=== PATIENT | female | born 1955 | race Caucasian/White ===

== ENCOUNTER → 2017-04-01 | Outpatient (CLI) | payer MEDICARE, OTHER | LOC: EXRD 15:18 | DX: M25.531 Pain in right wrist (principal) | CPT/HCPCS: 73100 ==

== ENCOUNTER → 2020-11-06 | Outpatient (CLI) | payer MEDICARE, OTHER ==
[~2020-11-06] MED LIST: CELEBREX100 MG PO; COZAAR 50MG TAB50 MG PO; CYCLOBENZAPRINE10 MG PO; CYCLOBENZAPRINE5 MG PO; DOXYCYCLINE MO100 MG PO; FENOFIBRATE160 MG PO; FLUOXETINE HCL40 MG PO; HYDROCODON-ACE1 EAC2 PO; HYDROCODON-ACE1 EAC4 PO; LODINE CAP 300300 MG PO; MACROBID 100 M100 MG PO; MEDROL DOSEPAK 24 MG PO; MEDROL4 MG PO; METFORMIN HCL1000 MG PO; METHYLPREDNISOLO4 M1 PO; NORFLEX 100 MG100 MG PO; OMEPRAZOLE40 MG PO; OZEMPIC0.25 MG/0. SQ; PERCOCET 5-3251 EACH PO; PYRIDIUM200 MG PO; TENORMIN 50 MG50 MG PO; ULTRAM50 MG PO; Voltaren Gel 1% TOP
== END ==
LOC: KOH-I 10-25 13:00
DX: M54.2 Cervicalgia (principal); M47.812 Spondylosis without myelopathy or radiculopathy, cervical region; M79.602 Pain in left arm; R20.2 Paresthesia of skin; M50.322 Other cervical disc degeneration at C5-C6 level; M50.223 Other cervical disc displacement at C6-C7 level; M50.221 Other cervical disc displacement at C4-C5 level; M48.03 Spinal stenosis, cervicothoracic region
CPT/HCPCS: 72141

== ENCOUNTER 2021-02-09 01:09 | Emergency (ER) | payer MEDICARE, OTHER ==
[~2021-02-09 01:09] MED LIST changes: -CELEBREX100 MG PO; -COZAAR 50MG TAB50 MG PO; -DOXYCYCLINE MO100 MG PO; -FENOFIBRATE160 MG PO; -FLUOXETINE HCL40 MG PO; -HYDROCODON-ACE1 EAC2 PO; -HYDROCODON-ACE1 EAC4 PO; -LODINE CAP 300300 MG PO; -MEDROL DOSEPAK 24 MG PO; -MEDROL4 MG PO; -METFORMIN HCL1000 MG PO; -METHYLPREDNISOLO4 M1 PO; -NORFLEX 100 MG100 MG PO; -OMEPRAZOLE40 MG PO; -OZEMPIC0.25 MG/0. SQ; -PERCOCET 5-3251 EACH PO; -TENORMIN 50 MG50 MG PO; -Voltaren Gel 1% TOP
[2021-02-09] MEDS ORDERED: LODINE CAP 300300 MG PO (02:30)
[2021-02-09] MEDS ORDERED: DOXYCYCLINE MO100 MG PO (02:30)
== END 2021-02-09 02:43 | disposition home or self-care (01) ==
LOC: ER1 01:09
DX: S70.262A Insect bite (nonvenomous), left hip, initial encounter (principal); E11.9 Type 2 diabetes mellitus without complications; I10 Essential (primary) hypertension; Z90.710 Acquired absence of both cervix and uterus; Z90.89 Acquired absence of other organs; Z88.8 Allergy status to other drugs, medicaments and biological substances; W57.XXXA Bitten or stung by nonvenomous insect and other nonvenomous arthropods, initial encounter
CPT/HCPCS: 99283

== ENCOUNTER → 2021-03-15 | Outpatient (CLI) | payer MEDICARE, OTHER ==
[~2021-03-15] MED LIST changes: +CELEBREX100 MG PO; +COZAAR 50MG TAB50 MG PO; +DOXYCYCLINE MO100 MG PO; +FENOFIBRATE160 MG PO; +FLUOXETINE HCL40 MG PO; +HYDROCODON-ACE1 EAC2 PO; +HYDROCODON-ACE1 EAC4 PO; +LODINE CAP 300300 MG PO; +MEDROL DOSEPAK 24 MG PO; +MEDROL4 MG PO; +METFORMIN HCL1000 MG PO; +METHYLPREDNISOLO4 M1 PO; +NORFLEX 100 MG100 MG PO; +OMEPRAZOLE40 MG PO; +OZEMPIC0.25 MG/0. SQ; +PERCOCET 5-3251 EACH PO; +TENORMIN 50 MG50 MG PO; +Voltaren Gel 1% TOP
== END ==
LOC: EXRD 16:00
DX: R42 Dizziness and giddiness (principal); R55 Syncope and collapse; I65.23 Occlusion and stenosis of bilateral carotid arteries
CPT/HCPCS: 93880

== ENCOUNTER 2021-04-16 12:49 | Emergency (ER) | payer MEDICARE, OTHER ==
[~2021-04-16 12:49] MED LIST changes: -CELEBREX100 MG PO; -COZAAR 50MG TAB50 MG PO; -FENOFIBRATE160 MG PO; -FLUOXETINE HCL40 MG PO; -HYDROCODON-ACE1 EAC2 PO; -HYDROCODON-ACE1 EAC4 PO; -MEDROL DOSEPAK 24 MG PO; -MEDROL4 MG PO; -METFORMIN HCL1000 MG PO; -METHYLPREDNISOLO4 M1 PO; -NORFLEX 100 MG100 MG PO; -OMEPRAZOLE40 MG PO; -OZEMPIC0.25 MG/0. SQ; -PERCOCET 5-3251 EACH PO; -TENORMIN 50 MG50 MG PO; -Voltaren Gel 1% TOP
[2021-04-16] MEDS ORDERED: MEDROL DOSEPAK 24 MG PO (17:11)
[2021-04-16] MEDS ORDERED: NORFLEX 100 MG100 MG PO (17:11)
[2021-04-16] MEDS ORDERED: Voltaren Gel 1% TOP (17:11)
== END 2021-04-16 18:00 | disposition home or self-care (01) ==
LOC: ER1 12:49
DX: M54.5 Low back pain (principal); M25.552 Pain in left hip; E11.9 Type 2 diabetes mellitus without complications; I10 Essential (primary) hypertension; Z90.710 Acquired absence of both cervix and uterus
CPT/HCPCS: 72100; 99283; J1100

== ENCOUNTER 2021-05-10 12:34 | Emergency (ER) | payer MEDICARE, OTHER ==
[~2021-05-10 12:34] MED LIST changes: +MEDROL DOSEPAK 24 MG PO; +NORFLEX 100 MG100 MG PO; +Voltaren Gel 1% TOP
[2021-05-10] MEDS ORDERED: HYDROCODON-ACE1 EAC4 PO (16:47)
[2021-05-10] MEDS ORDERED: MEDROL4 MG PO (16:47)
[2021-05-10] MEDS ORDERED: CELEBREX100 MG PO (16:49)
[2021-05-11] MEDS ORDERED: PERCOCET 5-3251 EACH PO (22:09)
[2021-05-11] MEDS ORDERED: OMEPRAZOLE40 MG PO (23:53)
[2021-05-11] MEDS ORDERED: METHYLPREDNISOLO4 M1 PO (23:53)
[2021-05-11] MEDS ORDERED: COZAAR 50MG TAB50 MG PO (23:54)
[2021-05-11] MEDS ORDERED: FENOFIBRATE160 MG PO (23:55)
[2021-05-11] MEDS ORDERED: FLUOXETINE HCL40 MG PO (23:55)
[2021-05-11] MEDS ORDERED: OZEMPIC0.25 MG/0. SQ (23:55)
[2021-05-11] MEDS ORDERED: TENORMIN 50 MG50 MG PO (23:55)
[2021-05-11] MEDS ORDERED: METFORMIN HCL1000 MG PO (23:56)
[2021-05-11] MEDS ORDERED: HYDROCODON-ACE1 EAC2 PO (23:57)
== END 2021-05-10 17:22 | disposition home or self-care (01) ==
LOC: ER1 12:34
DX: M51.36 Other intervertebral disc degeneration, lumbar region (principal); I10 Essential (primary) hypertension; E11.9 Type 2 diabetes mellitus without complications
CPT/HCPCS: 72131; 73502; 82962; 96374; 96375; 99284; J1170; J2360

== ENCOUNTER 2021-05-11 14:14 | Inpatient (IN) | payer MEDICARE, OTHER ==
[~2021-05-11] VITALS: Ht 165.1 cm; Wt 89.4 kg
[~2021-05-11 14:14] MED LIST changes: +CELEBREX100 MG PO; +HYDROCODON-ACE1 EAC4 PO; +MEDROL4 MG PO
[2021-05-11] MEDS ORDERED: PERCOCET 5-3251 EACH PO (22:09)
[2021-05-11] MEDS ORDERED: METHYLPREDNISOLO4 M1 PO (23:53)
[2021-05-11] MEDS ORDERED: OMEPRAZOLE40 MG PO (23:53)
[2021-05-11] MEDS ORDERED: COZAAR 50MG TAB50 MG PO (23:54)
[2021-05-11] MEDS ORDERED: FENOFIBRATE160 MG PO (23:55)
[2021-05-11] MEDS ORDERED: FLUOXETINE HCL40 MG PO (23:55)
[2021-05-11] MEDS ORDERED: OZEMPIC0.25 MG/0. SQ (23:55)
[2021-05-11] MEDS ORDERED: TENORMIN 50 MG50 MG PO (23:55)
[2021-05-11] MEDS ORDERED: METFORMIN HCL1000 MG PO (23:56)
[2021-05-11] MEDS ORDERED: HYDROCODON-ACE1 EAC2 PO (23:57)
[2021-05-12 06:18] LABS: RED BLOOD COUNT 4.77 M/UL (4.00-5.10); WHITE BLOOD COUNT 6.4 K/UL (4.5-11.0)
[2021-05-12 06:50] LABS: BUN/CREATININE RATIO 23 (0-10)
[2021-05-13 04:40] LABS: HEMOGLOBIN 13.2 gm/dl (12.3-15.3)
[2021-05-13 04:44] LABS: RED BLOOD COUNT 4.19 M/UL (4.00-5.10); WHITE BLOOD COUNT 9.1 K/UL (4.5-11.0)
[2021-05-13 05:15] LABS: BUN/CREATININE RATIO 31 (0-10)
[2021-05-14 03:16] LABS: HEMOGLOBIN 13.7 gm/dl (12.3-15.3); RED BLOOD COUNT 4.42 M/UL (4.00-5.10)
[2021-05-14 03:20] LABS: WHITE BLOOD COUNT 6.6 K/UL (4.5-11.0)
[2021-05-14 03:35] LABS: BUN/CREATININE RATIO 30 (0-10)
[2021-05-15 05:30] LABS: HEMOGLOBIN 13.6 gm/dl (12.3-15.3); RED BLOOD COUNT 4.37 M/UL (4.00-5.10); WHITE BLOOD COUNT 6.1 K/UL (4.5-11.0)
[2021-05-15 05:43] LABS: BUN/CREATININE RATIO 26 (0-10)
[2021-05-16 05:13] LABS: RED BLOOD COUNT 4.74 M/UL (4.00-5.10); WHITE BLOOD COUNT 5.2 K/UL (4.5-11.0)
[2021-05-16 05:43] LABS: BUN/CREATININE RATIO 24 (0-10)
[2021-05-16] MEDS ORDERED: MEDROL DOSEPAK 24 MG PO (13:12)
== END 2021-05-16 17:58 | disposition home or self-care (01) | DRG 552 ==
LOC: ER1 14:14 → M/S 23:13 → CDU 23:13 → M/S 05-12 00:23
PROVIDERS: Internal Medicine; ADMIT Internal Medicine
DX: M51.16 Intervertebral disc disorders with radiculopathy, lumbar region (principal); M51.06 Intervertebral disc disorders with myelopathy, lumbar region; M48.061 Spinal stenosis, lumbar region without neurogenic claudication; E66.9 Obesity, unspecified; Z20.822 Contact with and (suspected) exposure to COVID-19; Z68.30 Body mass index [BMI] 30.0-30.9, adult; F32.9 Major depressive disorder, single episode, unspecified; F41.9 Anxiety disorder, unspecified; K59.00 Constipation, unspecified; I10 Essential (primary) hypertension; K21.9 Gastro-esophageal reflux disease without esophagitis; E11.40 Type 2 diabetes mellitus with diabetic neuropathy, unspecified; D18.09 Hemangioma of other sites; R32 Unspecified urinary incontinence; Z88.8 Allergy status to other drugs, medicaments and biological substances; Z83.3 Family history of diabetes mellitus; Z82.49 Family history of ischemic heart disease and other diseases of the circulatory system; Z90.710 Acquired absence of both cervix and uterus; Z98.890 Other specified postprocedural states
CPT/HCPCS: 36415; 72131; 72148; 73502; 80053; 82550; 82553; 82607; 82746; 82962; 83036; 83605; 83735; 84100; 84439; 84443; 84484; 85025; 85027; 85652; 86140; 93005; 96372; 96374; 96375; 96376; 99284; G0378; J1170; J1650; J1885; J2270; J2360; J2405; J2930; J7030; U0002

== ENCOUNTER 2021-07-18 12:05 | Inpatient (IN) | payer MEDICARE, OTHER ==
[~2021-07-18] VITALS: Ht 165.1 cm; Wt 81.6 kg
[~2021-07-18 12:05] MED LIST changes: +COZAAR 50MG TAB50 MG PO; +FENOFIBRATE160 MG PO; +FLUOXETINE HCL40 MG PO; +HYDROCODON-ACE1 EAC2 PO; +METFORMIN HCL1000 MG PO; +METHYLPREDNISOLO4 M1 PO; +OMEPRAZOLE40 MG PO; +OZEMPIC0.25 MG/0. SQ; +PERCOCET 5-3251 EACH PO; +TENORMIN 50 MG50 MG PO
[2021-07-18 13:49] LABS: HEMOGLOBIN 14.1 gm/dl (12.3-15.3); RED BLOOD COUNT 4.6 M/UL (4.00-5.10)
[2021-07-18 14:14] LABS: BUN/CREATININE RATIO 13 (0-10)
[2021-07-19 09:03] LABS: HEMOGLOBIN 13.7 gm/dl (12.3-15.3); RED BLOOD COUNT 4.34 M/UL (4.00-5.10); WHITE BLOOD COUNT 3.2 K/UL (4.5-11.0)
[2021-07-19 09:43] LABS: BUN/CREATININE RATIO 18 (0-10)
[2021-07-20 03:04] LABS: HEMOGLOBIN 13.4 gm/dl (12.3-15.3); RED BLOOD COUNT 4.2 M/UL (4.00-5.10); WHITE BLOOD COUNT 6.7 K/UL (4.5-11.0)
[2021-07-20 03:52] LABS: BUN/CREATININE RATIO 26 (0-10)
[2021-07-20 19:57] LABS: BUN/CREATININE RATIO 21 (0-10)
[2021-07-21 07:56] LABS: RED BLOOD COUNT 3.81 M/UL (4.00-5.10); WHITE BLOOD COUNT 5.6 K/UL (4.5-11.0)
[2021-07-21 08:27] LABS: BUN/CREATININE RATIO 24 (0-10)
[2021-07-22 05:54] LABS: HEMOGLOBIN 12.2 gm/dl (12.3-15.3); RED BLOOD COUNT 3.9 M/UL (4.00-5.10); WHITE BLOOD COUNT 6.3 K/UL (4.5-11.0)
[2021-07-22 06:20] LABS: BUN/CREATININE RATIO 21 (0-10)
[2021-07-22] MEDS ORDERED: CHLORASEPTIC20 ML MT (10:19)
[2021-07-22] MEDS ORDERED: BENZONATATE100 MG PO (10:19)
[2021-07-22] MEDS ORDERED: IPRATROPIU0.2 MG/1 M NEB (10:19)
[2021-07-22] MEDS ORDERED: HUMIBID LA TAB600 MG PO (10:19)
[2021-07-22] MEDS ORDERED: BUDESONIDE0.5 MG/2 M NEB (10:19)
[2021-07-22] MEDS ORDERED: ELIQUIS2.5 MG PO (10:22)
[2021-07-22] MEDS ORDERED: DECADRON6 MG PO (10:22)
[2021-07-22] MEDS ORDERED: OMNICEF 300 MG300 MG PO (10:22)
[2021-07-22] MEDS ORDERED: DOXYCYCLINE HY100 M2 PO (10:22)
[2021-07-22] MEDS ORDERED: ROBITUSSIN DM UD5 ML PO (10:25)
--- NOTE | 2021-07-22 16:36 | NUR ---
PATIENT DECLINED FLU VACCINE
== END 2021-07-22 20:23 | disposition home or self-care (01) | DRG 177 ==
LOC: ER1 12:05 → CDU 17:25 → MED SURG 4 17:25
PROVIDERS: Physician Assistant; Physician Assistant Medical; ADMIT Internal Medicine
PROC: XW033E5 Introduction of Remdesivir Anti-infective into Peripheral Vein, Percutaneous Approach, New Technology Group 5 (ICD-10-PCS; principal; 2021-07-18)
PROC: 3E0333Z Introduction of Anti-inflammatory into Peripheral Vein, Percutaneous Approach (ICD-10-PCS; 2021-07-18)
PROC: 8E0ZXY6 Isolation (ICD-10-PCS; 2021-07-18)
DX: U07.1 COVID-19 (principal); J12.82 Pneumonia due to coronavirus disease 2019; J96.01 Acute respiratory failure with hypoxia; J15.9 Unspecified bacterial pneumonia; E87.1 Hypo-osmolality and hyponatremia; E87.2 Acidosis; I10 Essential (primary) hypertension; K21.9 Gastro-esophageal reflux disease without esophagitis; E66.01 Morbid (severe) obesity due to excess calories; F41.9 Anxiety disorder, unspecified; F32.9 Major depressive disorder, single episode, unspecified; E11.40 Type 2 diabetes mellitus with diabetic neuropathy, unspecified; E83.42 Hypomagnesemia; M48.061 Spinal stenosis, lumbar region without neurogenic claudication; Z79.84 Long term (current) use of oral hypoglycemic drugs; Z90.710 Acquired absence of both cervix and uterus; Z90.89 Acquired absence of other organs; Z88.8 Allergy status to other drugs, medicaments and biological substances; Z82.49 Family history of ischemic heart disease and other diseases of the circulatory system; Z83.3 Family history of diabetes mellitus; Z68.29 Body mass index [BMI] 29.0-29.9, adult
CPT/HCPCS: 36415; 36600; 71045; 71046; 80048; 80053; 82550; 82553; 82803; 82962; 83605; 83735; 83874; 84484; 85025; 85027; 85379; 87040; 93005; 94640; 94664; 94760; 99285; J0696; J1100; J1650; J1940; J3475; J7030; J7040; Q9967; U0002

== ENCOUNTER 2021-09-28 12:34 | Emergency (ER) | payer MEDICARE, OTHER ==
[~2021-09-28 12:34] MED LIST changes: +BENZONATATE100 MG PO; +BUDESONIDE0.5 MG/2 M NEB; +CHLORASEPTIC20 ML MT; +DECADRON6 MG PO; +DOXYCYCLINE HY100 M2 PO; +ELIQUIS2.5 MG PO; +HUMIBID LA TAB600 MG PO; +IPRATROPIU0.2 MG/1 M NEB; +OMNICEF 300 MG300 MG PO; +ROBITUSSIN DM UD5 ML PO
[2021-09-28 15:44] LABS: HEMOGLOBIN 16.1 gm/dl (12.3-15.3); RED BLOOD COUNT 5.12 M/UL (4.00-5.10); WHITE BLOOD COUNT 5.9 K/UL (4.5-11.0)
[2021-09-28 16:39] LABS: BUN/CREATININE RATIO 21 (0-10)
[2021-09-28] MEDS ORDERED: CYCLOBENZAPRINE10 MG PO (19:08)
== END 2021-09-28 19:25 | disposition home or self-care (01) ==
LOC: ER1 12:34
PROVIDERS: Family Medicine
DX: M54.9 Dorsalgia, unspecified (principal); E11.9 Type 2 diabetes mellitus without complications; I10 Essential (primary) hypertension
CPT/HCPCS: 80053; 85025; 96372; 99284; J1885; J2270; J2550; Q9967

== ENCOUNTER 2021-12-08 20:30 | Emergency (ER) | payer MEDICARE, OTHER ==
[2021-12-08 23:21] LABS: HEMOGLOBIN 14.8 gm/dl (12.3-15.3); RED BLOOD COUNT 4.7 M/UL (4.00-5.10); WHITE BLOOD COUNT 7.3 K/UL (4.5-11.0)
[2021-12-08 23:48] LABS: BUN/CREATININE RATIO 17 (0-10)
[2021-12-09] MEDS ORDERED: PERCOCET 5/325 T1 EA PO (05:14)
== END 2021-12-09 05:25 | disposition home or self-care (01) ==
LOC: ER1 20:30
PROVIDERS: Physician Assistant Medical
DX: S22.32XA Fracture of one rib, left side, initial encounter for closed fracture (principal); E11.9 Type 2 diabetes mellitus without complications; I10 Essential (primary) hypertension; Z88.8 Allergy status to other drugs, medicaments and biological substances; X50.9XXA Other and unspecified overexertion or strenuous movements or postures, initial encounter
CPT/HCPCS: 71101; 80053; 82550; 82553; 83874; 84484; 85025; 93005; 99284

== ENCOUNTER → 2022-01-07 | Outpatient (CLI) | payer MEDICARE, OTHER ==
[~2022-01-07] MED LIST changes: +PERCOCET 5/325 T1 EA PO
== END ==
LOC: KOH-I 01-04 09:15
DX: M54.16 Radiculopathy, lumbar region (principal); M43.9 Deforming dorsopathy, unspecified; M51.9 Unspecified thoracic, thoracolumbar and lumbosacral intervertebral disc disorder
CPT/HCPCS: 72146

== ENCOUNTER 2022-07-01 11:30 | Observation (INO) | payer MEDICARE, OTHER ==
[~2022-07-01] VITALS: Ht 165.1 cm; Wt 81.2 kg
[2022-07-01 12:16] LABS: HEMOGLOBIN 14.3 gm/dl (12.3-15.3); RED BLOOD COUNT 4.62 M/UL (4.00-5.10); WHITE BLOOD COUNT 5.9 K/UL (4.5-11.0)
[2022-07-01 12:38] LABS: BUN/CREATININE RATIO 20 (0-10)
[2022-07-01] MEDS ORDERED: FAMOTIDINE20 MG PO (18:10)
[2022-07-01] MEDS ORDERED: VITAMIN D21250 MCG PO (18:13)
[2022-07-01] MEDS ORDERED: HYDROCODON-ACE1 EAC2 PO (18:13)
[2022-07-01] MEDS ORDERED: HYDROXYZINE HCL25 MG PO (18:14)
[2022-07-01] MEDS ORDERED: ISOSORBIDE MONO30 MG PO (18:15)
[2022-07-02 01:58] LABS: HEMOGLOBIN 12.9 gm/dl (12.3-15.3); WHITE BLOOD COUNT 5.4 K/UL (4.5-11.0)
[2022-07-02 01:59] LABS: RED BLOOD COUNT 4.12 M/UL (4.00-5.10)
[2022-07-02 02:19] LABS: BUN/CREATININE RATIO 20 (0-10)
[2022-07-03 03:22] LABS: HEMOGLOBIN 14.5 gm/dl (12.3-15.3)
[2022-07-03 03:29] LABS: RED BLOOD COUNT 4.63 M/UL (4.00-5.10); WHITE BLOOD COUNT 6.9 K/UL (4.5-11.0)
[2022-07-03 03:51] LABS: BUN/CREATININE RATIO 15 (0-10)
[2022-07-03] MEDS ORDERED: ASPIRIN EC81 MG PO (16:01)
[2022-07-03] MEDS ORDERED: RANEXA500 MG PO (16:01)
[2022-07-03] MEDS ORDERED: ISOSORBIDE MONO60 MG PO (16:01)
[2022-07-03] MEDS ORDERED: LIPITOR40 MG PO (17:01)
[2022-07-03] MEDS ORDERED: METFORMIN HCL500 MG PO (19:13)
== END 2022-07-03 19:30 | disposition home or self-care (01) ==
LOC: ER1 11:30 → M/S 16:07 → CDU 16:07 → M/S 20:27
PROVIDERS: Family Medicine; Internal Medicine; Physician Assistant; ADMIT Internal Medicine
DX: I25.10 Atherosclerotic heart disease of native coronary artery without angina pectoris (principal); Z20.822 Contact with and (suspected) exposure to COVID-19; R00.1 Bradycardia, unspecified; R10.11 Right upper quadrant pain; E11.9 Type 2 diabetes mellitus without complications; I44.0 Atrioventricular block, first degree; I10 Essential (primary) hypertension; K21.9 Gastro-esophageal reflux disease without esophagitis; Z79.899 Other long term (current) drug therapy; Z86.73 Personal history of transient ischemic attack (TIA), and cerebral infarction without residual deficits; Z88.8 Allergy status to other drugs, medicaments and biological substances; Z88.5 Allergy status to narcotic agent
CPT/HCPCS: ECHO; 36415; 71045; 71275; 76705; 78452; 80048; 80053; 80061; 82550; 82553; 82962; 83036; 83735; 84439; 84443; 84484; 85025; 85027; 93005; 93017; 93306; 99152; 99153; 99285; A9502; G0378; J1644; J2250; J2785; J3010; Q9967; U0002

== ENCOUNTER 2022-07-15 02:13 | Emergency (ER) | payer MEDICARE, OTHER ==
[~2022-07-15 02:13] MED LIST changes: +ASPIRIN EC81 MG PO; +FAMOTIDINE20 MG PO; +HYDROXYZINE HCL25 MG PO; +ISOSORBIDE MONO30 MG PO; +ISOSORBIDE MONO60 MG PO; +LIPITOR40 MG PO; +METFORMIN HCL500 MG PO; +RANEXA500 MG PO; +VITAMIN D21250 MCG PO
[2022-07-15 03:31] LABS: HEMOGLOBIN 14.2 gm/dl (12.3-15.3); RED BLOOD COUNT 4.52 M/UL (4.00-5.10); WHITE BLOOD COUNT 6.7 K/UL (4.5-11.0)
[2022-07-15 04:04] LABS: BUN/CREATININE RATIO 22 (0-10)
== END 2022-07-15 06:18 | disposition home or self-care (01) ==
LOC: ER1 02:13
PROVIDERS: Emergency Medicine
DX: R05.9 Cough, unspecified (principal); E04.1 Nontoxic single thyroid nodule; E11.9 Type 2 diabetes mellitus without complications; I11.9 Hypertensive heart disease without heart failure; E78.5 Hyperlipidemia, unspecified; Z88.8 Allergy status to other drugs, medicaments and biological substances; Z20.822 Contact with and (suspected) exposure to COVID-19
CPT/HCPCS: 71045; 80053; 83690; 84484; 85025; 85379; 86140; 93005; 99285; Q9967; U0002